=== PATIENT | female | born 1995 | race Caucasian/White ===

== ENCOUNTER 2016-08-12 02:42 | Emergency (ER) | payer BC, OTHER, SELFPAY ==
[~2016-08-12 02:42] MED LIST: MACR100C3 PO; TRAZ50TA4 PO; ZOLO50TA PO
[2016-08-12] MEDS ORDERED: AUGMENTIN 875 MG TAB As Ordered ONE (03:16)
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
--- NOTE | 2016-08-12 08:24 | REP ---
Clinical: Trauma. Technique: AP, lateral, bilateral oblique views of the right fourth digit. Findings: Intra-articular corner fracture at the base of the distal phalanx. Impression: Fracture at the base of the distal phalanx. Signed by Dain Bryan MD 08/12/2016 08:16 A
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
== END 2016-08-12 03:52 | disposition home or self-care (01) ==
LOC: M ED 02:42
DX: S01.512A Laceration without foreign body of oral cavity, initial encounter (principal); S62.634A Displaced fracture of distal phalanx of right ring finger, initial encounter for closed fracture; Y04.8XXA Assault by other bodily force, initial encounter; Y92.410 Unspecified street and highway as the place of occurrence of the external cause; Y93.89 Activity, other specified; Y99.8 Other external cause status; J45.909 Unspecified asthma, uncomplicated; F17.210 Nicotine dependence, cigarettes, uncomplicated

== ENCOUNTER 2016-08-23 13:01 | Emergency (ER) | payer BC, SELFPAY ==
[~2016-08-23] VITALS: Ht 157.5 cm; Wt 66.7 kg
[~2016-08-23 13:01] MED LIST changes: -CIPR500T89 PO; -MULT1CHW26 PO
[2016-08-23] MEDS ORDERED: MULT1CHW26 PO (13:15)
[2016-08-23] MEDS ORDERED: KETOROLAC 30 MG/ML VIAL (J1885) IV ONE (14:15)
[2016-08-23] MEDS ORDERED: ONDANSETRON 4MG/2ML VIAL (J2405) IV ONE (14:15)
[2016-08-23] MEDS ORDERED: NS 1,000 ML IV ONE (14:15)
[2016-08-23 14:40] LABS: BASO % 0.4 % (0.0-1.0); EOS # 0.1 K/mm3 (0.0-0.50); EOS % 1.6 % (0.0-3.0); LARGE UNSTAINED CELL # 0.1 K/mm3 (0.0-0.4); LARGE UNSTAINED CELL % 0.9 % (0.0-4.0); LYMPH # 1.7 K/mm3 (1.5-6.5); LYMPH % 18.8 % (24.0-44.0); MEAN CORPUSCULAR HEMOGLOBIN 29.7 pg (27.0-33.0); MEAN CORPUSCULAR HGB CONC 32.9 g/dl (32.0-36.5); MEAN CORPUSCULAR VOLUME 90.4 fl (80.0-96.0); MONO # 0.5 K/mm3 (0.0-0.8); MONO % 5.4 % (0.0-5.0); NEUTROPHILS # 6.3 K/mm3 (1.8-7.7); NEUTROPHILS % 72.8 % (36.0-66.0); PLATELET COUNT, AUTOMATED 301 k/mm3 (150-450); RED CELL DISTRIBUTION WIDTH 13.1 % (11.5-14.5); WHITE BLOOD COUNT 8.6 K/mm3 (4.0-10.0)
[2016-08-23 15:02] LABS: CONTROL LINE HCG INT CTR LINE PRESENT
[2016-08-23 15:11] LABS: ALBUMIN 4.2 GM/DL (3.2-5.2); ALBUMIN/GLOBULIN RATIO 1.35 (1.00-1.93); ALKALINE PHOSPHATASE 73 U/L (45-117); ALT/SGPT 24 U/L (12-78); AMYLASE 33 U/L (25-115); ANION GAP 7 MEQ/L (8-16); AST/SGOT 21 U/L (15-37); BILIRUBIN,DIRECT < 0.1 MG/DL (0.0-0.2); BILIRUBIN,TOTAL 0.3 MG/DL (0.2-1.0); BLOOD UREA NITROGEN 9 MG/DL (7-18); CALCIUM LEVEL 9.1 MG/DL (8.5-10.1); CARBON DIOXIDE LEVEL 28 MEQ/L (21-32); CHLORIDE LEVEL 107 MEQ/L (98-107); CREATININE FOR GFR 0.83 MG/DL (0.55-1.02); GLOMERULAR FILTRATION RATE > 60.0 (>60); GLUCOSE, FASTING 91 MG/DL (70-105); POTASSIUM SERUM 3.8 MEQ/L (3.5-5.1); SODIUM LEVEL 142 MEQ/L (136-145); TOTAL PROTEIN 7.3 GM/DL (6.4-8.2)
[2016-08-23] MEDS ORDERED: CIPR500T89 PO (15:34)
[2016-08-23 15:51] VITALS: BP 118/58
--- NOTE | 2016-08-23 16:54 | REP ---
CT ABDOMEN AND PELVIS WITHOUT ORAL OR IV CONTRAST: CT abdomen and pelvis was performed without IV contrast. Sagittal and coronal reconstructions images are performed. Visualized lung bases are clear. The liver, spleen, adrenals, pancreas and kidneys are grossly unremarkable. There is no renal, ureteral or bladder calculus and no evidence of hydroureteronephrosis. There is no abdominal aortic aneurysm. There is no free air or free fluid. There is no adenopathy. There is no bowel wall thickening. The appendix is normal. I see no pelvic mass. The urinary bladder appears grossly unremarkable. IMPRESSION: Negative CT abdomen and pelvis without IV contrast. Signed by Colyb Lowery MD 08/23/2016 05:25 P
== END 2016-08-23 16:47 | disposition home or self-care (01) ==
LOC: M ED 14:54
DX: N10 Acute pyelonephritis (principal); Z79.899 Other long term (current) drug therapy; F17.210 Nicotine dependence, cigarettes, uncomplicated
CPT/HCPCS: 36415; 74176; 80048; 80076; 81001; 82150; 83690; 84703; 85025; 85610; 87088; 87186; 96374; 96375; 99282; J1885; J2405

== ENCOUNTER → 2016-08-23 | Outpatient (REF) | payer BC ==
[~2016-08-23] MED LIST changes: +CIPR500T89 PO; +MULT1CHW26 PO
== END ==
LOC: M LAB REF 16:35
PROVIDERS: ATTEND Physician Assistant
DX: R11.2 Nausea with vomiting, unspecified (principal)

== ENCOUNTER → 2016-09-05 | Outpatient (REF) | payer BC ==
[~2016-09-05] MED LIST changes: +CIPR500T89 PO; +MULT1CHW26 PO
== END ==
LOC: M SFHCLERA 09:44
PROVIDERS: ATTEND Physician Assistant
DX: R10.9 Unspecified abdominal pain (principal)

== ENCOUNTER → 2016-10-10 | Outpatient (REF) | payer BC ==
[~2016-10-10] MED LIST changes: +SUCR1SS PO; +ZOFR4TAB3 PO
== END ==
LOC: M SFHCLERA 15:20
PROVIDERS: ATTEND Family Medicine
DX: R10.13 Epigastric pain (principal); N39.0 Urinary tract infection, site not specified

== ENCOUNTER 2016-10-11 14:08 | Emergency (ER) | payer BC ==
[~2016-10-11] VITALS: Ht 157.5 cm; Wt 68.0 kg
[~2016-10-11 14:08] MED LIST changes: -SUCR1SS PO; -ZOFR4TAB3 PO
[2016-10-11] MEDS ORDERED: ZOFR4TAB3 PO (14:22)
[2016-10-11] MEDS ORDERED: ONDANSETRON 4 MG ORAL DISINTEGRATING TAB (S0181) PO ONE (15:00)
[2016-10-11] MEDS ORDERED: GI COCKTAIL 50ML BTL(HYOSCYAMINE/MAALOX/LIDOCAINE VISCOUS)(1:3:1) PO ONE (15:00)
[2016-10-11 15:19] LABS: BASO % 0.6 % (0.0-1.0); EOS # 0.2 K/mm3 (0.0-0.50); EOS % 3.2 % (0.0-3.0); LARGE UNSTAINED CELL # 0.1 K/mm3 (0.0-0.4); LARGE UNSTAINED CELL % 1.2 % (0.0-4.0); LYMPH # 2.2 K/mm3 (1.5-6.5); LYMPH % 26.5 % (24.0-44.0); MEAN CORPUSCULAR HEMOGLOBIN 29.4 pg (27.0-33.0); MEAN CORPUSCULAR HGB CONC 33.3 g/dl (32.0-36.5); MEAN CORPUSCULAR VOLUME 88.3 fl (80.0-96.0); MONO # 0.5 K/mm3 (0.0-0.8); MONO % 6.8 % (0.0-5.0); NEUTROPHILS # 4.8 K/mm3 (1.8-7.7); NEUTROPHILS % 61.7 % (36.0-66.0); PLATELET COUNT, AUTOMATED 285 k/mm3 (150-450); WHITE BLOOD COUNT 7.8 K/mm3 (4.0-10.0)
[2016-10-11 16:20] LABS: ALBUMIN 4.5 GM/DL (3.2-5.2); ALBUMIN/GLOBULIN RATIO 1.36 (1.00-1.93); ALKALINE PHOSPHATASE 63 U/L (45-117); ALT/SGPT 29 U/L (12-78); AMYLASE 37 U/L (25-115); ANION GAP 11 MEQ/L (8-16); AST/SGOT 17 U/L (15-37); BILIRUBIN,DIRECT 0.1 MG/DL (0.0-0.2); BILIRUBIN,TOTAL 0.5 MG/DL (0.2-1.0); BLOOD UREA NITROGEN 9 MG/DL (7-18); CALCIUM LEVEL 9.6 MG/DL (8.5-10.1); CARBON DIOXIDE LEVEL 24 MEQ/L (21-32); CHLORIDE LEVEL 106 MEQ/L (98-107); CREATININE FOR GFR 0.89 MG/DL (0.55-1.02); GLOMERULAR FILTRATION RATE > 60.0 (>60); GLUCOSE, FASTING 104 MG/DL (70-105); POTASSIUM SERUM 3.7 MEQ/L (3.5-5.1); SODIUM LEVEL 141 MEQ/L (136-145); TOTAL PROTEIN 7.8 GM/DL (6.4-8.2)
[2016-10-11] MEDS ORDERED: SUCR1SS PO (16:40)
[2016-10-11 16:46] VITALS: BP 123/83
== END 2016-10-11 17:07 | disposition home or self-care (01) ==
LOC: M ED 15:19
DX: K29.00 Acute gastritis without bleeding (principal)

== ENCOUNTER → 2016-10-17 | Outpatient (REF) | payer BC ==
[~2016-10-17] MED LIST changes: +SUCR1SS PO; +ZOFR4TAB3 PO
== END ==
LOC: M SFHCLERA 15:48
PROVIDERS: ATTEND Physician Assistant
DX: N39.0 Urinary tract infection, site not specified (principal)

== ENCOUNTER → 2016-11-13 | Outpatient (CLI) | payer BC ==
[~2016-11-13] MED LIST changes: +E-Z-PAQUE 96% w/w SUSP 176GM BTL As Ordered ONE; +OMEP40CA2 PO
--- NOTE | 2016-11-13 17:47 | REP ---
SMALL BOWEL FOLLOW-THROUGH: The procedure was performed under the direct supervision of Dr. Snow. The images were reviewed with Dr. Snow. The blanking press operator film shows no organomegaly or pathological masses. The intestinal gas pattern is nonspecific. Liquid barium was administered and the barium column was followed through the small bowel to the level of the terminal ileum. Small bowel transit time is approximately 90 minutes. During fluoroscopy gentle palpation shows all loops are freely movable and pliable. There are no fixed or angulated loops. The small bowel mucosal pattern is normal in course and caliber. There is no transition to suggest a partial small bowel obstruction. Spot filming of terminal ileum shows it to be unremarkable. IMPRESSION: Small bowel follow-through examination within normal limits 2 minutes and 44 seconds of fluoroscopy time was utilized for this procedure. Reviewed by ROSIE Epperson 11/14/2016 10:20 AEdited and Signed by Lionel Snow MD 11/14/2016 05:05 P
== END ==
LOC: M RAD 09:17
PROVIDERS: ATTEND Internal Medicine Gastroenterology
DX: K58.9 Irritable bowel syndrome, unspecified (principal)

== ENCOUNTER → 2016-11-16 | Outpatient (CLI) | payer BC ==
[~2016-11-16] MED LIST changes: -E-Z-PAQUE 96% w/w SUSP 176GM BTL As Ordered ONE; +PANT40TA2 PO
[2016-11-16 10:07] LABS: FREE T4 0.9 NG/DL (0.76-1.46)
== END ==
LOC: M LAB 09:05
PROVIDERS: ATTEND Internal Medicine Gastroenterology
DX: K58.1 Irritable bowel syndrome with constipation (principal)

== ENCOUNTER → 2016-11-17 | Outpatient (CLI) | payer BC ==
[~2016-11-17] VITALS: Ht 157.5 cm; Wt 66.2 kg
[~2016-11-17] MED LIST changes: +LIDOCAINE 2% INJ 100 MG/5 ML SDV (FOR ANES.) As Ordered ONE; +NS 1,000 ML IV ONE; +PROPOFOL 200 MG/20 ML VIAL As Ordered ONE
--- NOTE | 2016-11-17 11:20 | ROOR ---
Patient Name: Adele Albarran Procedure Date: 11/17/2016 11:07 AM Date of : 1995 Age: 21 Room: [facility] Gender: Female Note Status: Finalized Procedure: Upper GI endoscopy Indications: Functional Dyspepsia, Exclusion of celiac disease, Suspected irritable bowel syndrome, Nausea with vomiting Providers: Shady HOLT MD Referring MD: ROHAN Castro Requesting Provider: Medicines: Monitored Anesthesia Care Complications: No immediate complications. Procedure: Pre-Anesthesia Assessment: - The heart rate, respiratory rate, oxygen saturations, blood pressure, adequacy of pulmonary ventilation, and response to care were monitored throughout the procedure. The Endoscope was introduced through the mouth, and advanced to the second part of duodenum. The upper GI endoscopy was accomplished without difficulty. The patient tolerated the procedure well. Findings: The esophagus was normal. The stomach was normal. The examined duodenum was normal. Biopsies for histology were taken with a cold forceps for evaluation of celiac disease. Impression: - Normal esophagus. - Normal stomach. - Normal examined duodenum. Biopsied. Recommendation: - Observe patient's clinical course. - Telephone endoscopist for pathology results in 2 weeks. Shady Holt MD Shady HOLT MD 11/17/2016 11:20:07 AM This report has been signed electronically. Number of Addenda: 0 Note Initiated On: 11/17/2016 11:07 AM Estimated Blood Loss: Estimated blood loss: none.
--- NOTE | 2016-11-17 11:34 | ROOR ---
Patient Name: Adele Albarran Procedure Date: 11/17/2016 11:08 AM Date of : 1995 Age: 21 [facility] Note Status: Finalized Procedure: Colonoscopy Indications: Generalized abdominal pain, Irritable bowel syndrome with constipation, Constipation Providers: Shady HOLT MD Referring MD: ROHAN Castro Requesting Provider: Medicines: Monitored Anesthesia Care Complications: No immediate complications. Procedure: Pre-Anesthesia Assessment: - The heart rate, respiratory rate, oxygen saturations, blood pressure, adequacy of pulmonary ventilation, and response to care were monitored throughout the procedure. The Colonoscope was introduced through the anus and advanced to 2 cm into the ileum. The colonoscopy was performed without difficulty. The patient tolerated the procedure well. The quality of the bowel preparation was fair. The bowel preparation used was GoLYTELY and magnesium citrate. Findings: The perianal and digital rectal examinations were normal. (EXAM: Complete, PREP:Adequate) The terminal ileum appeared normal. The entire examined colon appeared normal on direct and retroflexion views. Impression: - Preparation of the colon was fair/adequate. - The examined portion of the ileum was normal. - The entire colon is normal on direct and retroflexion views. - No specimens collected. - (Irritable bowel syndrome-constipation predominant). Recommendation: - Miralax 1 capful (17 grams) in 8 ounces of water twice a day. - Continue present medications. Shady Holt MD Shady HOLT MD 11/17/2016 11:34:15 AM This report has been signed electronically. Number of Addenda: 0 Note Initiated On: 11/17/2016 11:08 AM Estimated Blood Loss: Estimated blood loss: none.
[2016-11-17 11:55] VITALS: BP 132/83
== END | disposition home or self-care (01) ==
LOC: M OPP 10:05
PROVIDERS: ATTEND Internal Medicine Gastroenterology
DX: K58.1 Irritable bowel syndrome with constipation (principal); R10.13 Epigastric pain; R11.2 Nausea with vomiting, unspecified; F33.9 Major depressive disorder, recurrent, unspecified; F41.9 Anxiety disorder, unspecified; J45.909 Unspecified asthma, uncomplicated; F17.210 Nicotine dependence, cigarettes, uncomplicated; Z79.899 Other long term (current) drug therapy

== ENCOUNTER → 2016-12-06 | Outpatient (CLI) | payer BC ==
[~2016-12-06] MED LIST changes: +IBUP600T26 PO; -LIDOCAINE 2% INJ 100 MG/5 ML SDV (FOR ANES.) As Ordered ONE; -NS 1,000 ML IV ONE; -PROPOFOL 200 MG/20 ML VIAL As Ordered ONE
--- NOTE | 2016-12-07 03:15 | REP ---
Clinical: thoracic pain. Technique: AP, lateral, and swimmers views. Findings: Alignment and kyphosis is maintained. Vertebral bodies intact. No acute fracture / compression injury or subluxation. No degenerative changes. Paravertebral soft tissues are normal. Impression: Normal thoracic spine series. Signed by Dain Bryan MD 12/07/2016 03:06 A
--- NOTE | 2016-12-07 03:19 | REP ---
Clinical: Lower back pain . Technique: AP, lateral, bilateral oblique, and coned-down views. Findings: Alignment and lordosis is maintained. The vertebral bodies including transverse process and spinous processes are intact and normal. There is no evidence for acute fracture / compression injury or subluxation. No evidence for spondylolysis or spondylolisthesis. No significant degenerative change is noted. Impression: Normal lumbosacral spine radiograph series. Signed by Dain Bryan MD 12/07/2016 03:10 A
== END ==
LOC: M LRY 11:18
PROVIDERS: ATTEND Physician Assistant
DX: M54.5 Low back pain (principal); M54.6 Pain in thoracic spine

== ENCOUNTER 2016-12-08 07:03 | Emergency (ER) | payer BC ==
[~2016-12-08] VITALS: Ht 157.5 cm; Wt 66.3 kg
[~2016-12-08 07:03] MED LIST changes: -IBUP600T26 PO
[2016-12-08] MEDS ORDERED: ACETAMINOPHEN TAB 650MG DOSE (2X325MG) PO ONE (08:15)
[2016-12-08] MEDS ORDERED: IBUPROFEN 800 MG TAB PO ONE (08:15)
[2016-12-08] MEDS ORDERED: IBUP600T26 PO (08:38)
[2016-12-08 08:48] VITALS: BP 138/92
--- NOTE | 2016-12-08 09:04 | REP ---
RIGHT HAND SERIES: Four views of the right hand are performed. There is a lucency at the base of the 4th distal phalanx, which may represent a nondisplaced fracture. This could be old. No other acute fracture or dislocation is seen. Signed by Colby Lowery MD 12/08/2016 05:16 P
== END 2016-12-08 08:49 | disposition home or self-care (01) ==
LOC: M ED 07:50
DX: S63.501A Unspecified sprain of right wrist, initial encounter (principal); W22.8XXA Striking against or struck by other objects, initial encounter; Y92.89 Other specified places as the place of occurrence of the external cause; Y93.89 Activity, other specified; Y99.8 Other external cause status; F17.210 Nicotine dependence, cigarettes, uncomplicated

== ENCOUNTER → 2017-03-28 | Outpatient (REF) | payer BC ==
[~2017-03-28] MED LIST changes: +CIPR-249 PO; -CIPR500T89 PO; +HYDR-3713; +IBUP-1022 PO; -MACR100C3 PO; +MACR100C43 PO; +ONDA4TAB5; +PRAZ2CAP; +SERT-138; +TRAZ50TA11 PO; -TRAZ50TA4 PO
[2017-04-06 14:48] LABS: SUMMARY SEE SEPARATE REPORT
== END ==
LOC: M SFHCLERA 16:59
PROVIDERS: ATTEND Physician Assistant
DX: Z87.898 Personal history of other specified conditions (principal)

== ENCOUNTER 2017-04-09 11:00 | Emergency (ER) | payer BC ==
[~2017-04-09] VITALS: Ht 157.5 cm; Wt 65.9 kg
[~2017-04-09 11:00] MED LIST changes: -HYDR-3713; -ONDA4TAB5; -PRAZ2CAP; -SERT-138
[2017-04-09 11:01] VITALS: BP 126/81
[2017-04-09] MEDS ORDERED: SERT-138 (11:17)
[2017-04-09] MEDS ORDERED: PRAZ2CAP (11:17)
[2017-04-09] MEDS ORDERED: HYDR-3713 (11:17)
[2017-04-09] MEDS ORDERED: ONDA4TAB5 (11:17)
== END 2017-04-09 12:33 | disposition left against medical advice (07) ==
LOC: M ED 11:00
DX: R10.9 Unspecified abdominal pain (principal); Z53.29 Procedure and treatment not carried out because of patient's decision for other reasons

== ENCOUNTER → 2017-06-28 | Outpatient (CLI) | payer BC ==
[2017-06-28 15:09] LABS: C REACTIVE PROTEIN QUANTITATIV < 0.30 MG/DL (0.00-0.30)
[2017-06-28 15:10] LABS: ERYTHROCYTE SEDIMENTATION RATE 5 mm/hr (0-20)
[2017-07-03 00:07] LABS: ANCA-ATYPICAL <1:20 titer (Neg:<1:20); ANTI-SACCHAROMYCES CEREV. IgA <20.0 Units (0.0-24.9); ANTI-SACCHAROMYCES CEREV. IgG <20.0 Units (0.0-24.9); CYTOPLASMIC NEUTROP AB ANCA-C <1:20 titer (Neg:<1:20); ENDOMYSIAL ABY IgA Negative (Negative); PERINUCLEAR AB ANCA-P <1:20 titer (Neg:<1:20); TISSUE TRANSGLUTAMINASE IgA <2 U/mL (0-3); TISSUE TRANSGLUTAMINASE IgG <2 U/mL (0-5)
== END ==
LOC: M LAB 13:52
DX: R19.7 Diarrhea, unspecified (principal); R10.9 Unspecified abdominal pain; A04.72 Enterocolitis due to Clostridium difficile, not specified as recurrent; R94.5 Abnormal results of liver function studies
CPT/HCPCS: 86255

== ENCOUNTER 2017-06-30 16:58 | Emergency (ER) | payer OTHER, BC ==
[2017-06-30] MEDS: IBUPROFEN 800 MG TAB PO (17:34)
== END 2017-06-30 17:57 | disposition home or self-care (01) ==
LOC: M ED 16:58
DX: S83.91XA Sprain of unspecified site of right knee, initial encounter (principal); S80.01XA Contusion of right knee, initial encounter; S30.0XXA Contusion of lower back and pelvis, initial encounter; V49.49XA Driver injured in collision with other motor vehicles in traffic accident, initial encounter; Y92.410 Unspecified street and highway as the place of occurrence of the external cause; Y93.89 Activity, other specified; Y99.8 Other external cause status; J45.909 Unspecified asthma, uncomplicated; F41.9 Anxiety disorder, unspecified; N89.9 Noninflammatory disorder of vagina, unspecified; Z79.899 Other long term (current) drug therapy; F17.210 Nicotine dependence, cigarettes, uncomplicated
CPT/HCPCS: 72170

== ENCOUNTER → 2017-08-03 | Outpatient (CLI) | payer OTHER | LOC: M LAB 09:03 | DX: A04.72 Enterocolitis due to Clostridium difficile, not specified as recurrent (principal) | CPT/HCPCS: 83993 ==

== ENCOUNTER → 2017-08-03 | Outpatient (CLI) | payer OTHER | LOC: M RAD 08:32 | DX: R10.9 Unspecified abdominal pain (principal); R11.0 Nausea | CPT/HCPCS: 76700 ==

== ENCOUNTER → 2019-01-29 | Outpatient (REF) | payer OTHER ==
[~2019-01-29] MED LIST changes: +HYDR-3713; +ONDA4TAB5; -PANT40TA2 PO; +PANT40TA3 PO; +PRAZ2CAP; +PROP20TA72 PO; +REGL10TA6 PO; +ROBA500T PO; +SERT-138 PO; +TRAZ-252 PO; -TRAZ50TA11 PO; +ZOFR4TAB14 PO; -ZOFR4TAB3 PO
[2019-01-29 13:48] LABS: AMORPHOUS SEDIMENT SMALL (NEGATIVE); APPEARANCE, URINE HAZY (CLEAR); BACTERIA, URINE AUTO NEGATIVE (NEGATIVE); BASO # 0.1 10^3/uL (0.0-0.2); BASO % 0.8 % (0.0-1.0); BILIRUBIN, URINE AUTO NEGATIVE (NEGATIVE); BLOOD, URINE BLOOD NEGATIVE (NEGATIVE); CALCIUM PHOSPHATE CRYSTALS MODERATE; COLOR, URINE YELLOW (YELLOW); EOS # 0.4 10^3/uL (0.0-0.50); EOS % 5.3 % (0.0-3.0); GLUCOSE, URINE (UA) AUTO NEGATIVE (NEGATIVE); HEMATOCRIT 41.9 % (36.0-47.0); HEMOGLOBIN 13.8 g/dl (12.0-15.5); KETONE, URINE AUTO NEGATIVE (NEGATIVE); LEUKOCYTE ESTERASE, URINE AUTO NEGATIVE (NEGATIVE); LYMPH # 2.6 10^3/uL (1.5-6.5); LYMPH % 33.5 % (24.0-44.0); MEAN CORPUSCULAR HEMOGLOBIN 30.4 pg (27.0-33.0); MEAN CORPUSCULAR HGB CONC 32.9 g/dl (32.0-36.5); MEAN CORPUSCULAR VOLUME 92.3 fl (80.0-96.0); MONO # 0.7 10^3/uL (0.0-0.8); MONO % 8.4 % (0.0-5.0); MUCUS, URINE SMALL (NEGATIVE); NEUTROPHILS # 4.1 10^3/uL (1.8-7.7); NEUTROPHILS % 51.7 % (36.0-66.0); NITRITE, URINE AUTO NEGATIVE (NEGATIVE); PLATELET COUNT, AUTOMATED 263 10^3/uL (150-450); PROTEIN, URINE AUTO NEGATIVE (NEGATIVE); RBC, URINE AUTO 2 /HPF (0-3); RED BLOOD COUNT 4.54 10^6/uL (4.00-5.40); RENAL EPITHELIAL CELLS 1 /HPF; SPECIFIC GRAVITY URINE AUTO 1.019 (1.002-1.035); SQUAMOUS EPITHELIAL CELL UR AU 7 /HPF (0-6); TRANSITIONAL EPITHELIAL AUTO 1 /HPF; UROBILINOGEN, URINE AUTO 0.2 mg/dL (0.0-2.0); WBC, URINE AUTO 4 /HPF (0-3); WHITE BLOOD COUNT 7.9 10^3/uL (4.0-10.0)
[2019-01-29 13:54] LABS: ALT/SGPT 24 U/L (12-78); BILIRUBIN,TOTAL < 0.1 MG/DL (0.2-1.0); BLOOD UREA NITROGEN 10 MG/DL (7-18); CALCIUM LEVEL 9.3 MG/DL (8.5-10.1); CARBON DIOXIDE LEVEL 28 MEQ/L (21-32); CHLORIDE LEVEL 108 MEQ/L (98-107); CHOLESTEROL LEVEL 149 MG/DL (<200); CHOLESTEROL RISK RATIO 2.759 (<5); CREATININE FOR GFR 0.84 MG/DL (0.55-1.30); GLOMERULAR FILTRATION RATE > 60.0 (>60); GLUCOSE, FASTING 85 MG/DL (70-100); HDL CHOLESTEROL 54 MG/DL (>40); LDL CHOLESTEROL 86 MG/DL (<100); NON-HDL-C 95 MG/DL; POTASSIUM SERUM 4.8 MEQ/L (3.5-5.1); SODIUM LEVEL 141 MEQ/L (136-145); TRIGLYCERIDES LEVEL 46 MG/DL (<150)
[2019-01-29 13:55] LABS: ESTRADIOL 68.3 PG/ML; FREE T4 0.94 NG/DL (0.76-1.46)
[2019-01-29 13:57] LABS: TOTAL 25(OH) VITAMIN D 22.1 NG/ML (30.0-100.0)
[2019-01-29 14:09] LABS: HEPATITIS B SURFACE ANTIGEN NEGATIVE (NEGATIVE)
[2019-01-29 14:14] LABS: HEMOGLOBIN A1c 5.4 %
[2019-01-29 14:36] LABS: HEPATITIS B CORE ANTIBODY IGM NEGATIVE (NEGATIVE); HEPATITIS C VIRUS ABY INDEX 0.1 INDEX (<0.8)
[2019-01-29 14:37] LABS: HIV 1&2 SCREEN CENTAUR NEGATIVE (NEGATIVE)
[2019-01-29 14:39] LABS: HEPATITIS A ANTIBODY IGM NEGATIVE (NEGATIVE)
[2019-01-29 16:39] LABS: CHLAMYDIA DNA AMPLIFICATION NEGATIVE (NEGATIVE); GC DNA AMPLIFICATION NEGATIVE (NEGATIVE)
[2019-01-31 15:47] LABS: HSV TYPE I IgG SPECIFIC <0.91 index (0.00-0.90); HSV TYPE I IgM AB <1:10 titer (<1:10); HSV TYPE II IgG SPECIFIC <0.91 index (0.00-0.90); HSV TYPE II IgM ABY <1:10 titer (<1:10); Lyme Disease IgG/IgM Antibodie <0.91 ISR (0.00-0.90); Lyme Disease IgM Ab Quantitati <0.80 index (0.00-0.79)
== END ==
LOC: M LAB REF 12:55
PROVIDERS: ATTEND Family Medicine
DX: F64.0 Transsexualism (principal); Z13.228 Encounter for screening for other metabolic disorders; Z11.3 Encounter for screening for infections with a predominantly sexual mode of transmission

== ENCOUNTER → 2019-06-23 | Outpatient (REF) | payer OTHER ==
[~2019-06-23] MED LIST changes: -OMEP40CA2 PO; +OMEP40CA97 PO
[2019-06-23 18:16] LABS: BASO # 0.1 10^3/uL (0.0-0.2); BASO % 1.1 % (0.0-1.0); EOS # 0.3 10^3/uL (0.0-0.5); EOS % 4.8 % (0.0-3.0); HEMATOCRIT 43.1 % (36.0-47.0); HEMOGLOBIN 13.9 g/dl (12.0-15.5); LYMPH # 1.2 10^3/uL (1.5-5.0); LYMPH % 20.8 % (24.0-44.0); MEAN CORPUSCULAR HEMOGLOBIN 28.3 pg (27.0-33.0); MEAN CORPUSCULAR HGB CONC 32.3 g/dl (32.0-36.5); MEAN CORPUSCULAR VOLUME 87.8 fl (80.0-96.0); MONO # 0.8 10^3/uL (0.0-0.8); MONO % 14.1 % (0.0-5.0); NEUTROPHILS # 3.3 10^3/uL (1.5-8.5); PLATELET COUNT, AUTOMATED 220 10^3/uL (150-450); RED BLOOD COUNT 4.91 10^6/uL (4.00-5.40); WHITE BLOOD COUNT 5.6 10^3/uL (4.0-10.0)
[2019-06-23 18:24] LABS: ALBUMIN 4.2 GM/DL (3.2-5.2); ALT/SGPT 31 U/L (12-78); BILIRUBIN,TOTAL 0.2 MG/DL (0.2-1.0); BLOOD UREA NITROGEN 7 MG/DL (7-18); CALCIUM LEVEL 9.1 MG/DL (8.5-10.1); CARBON DIOXIDE LEVEL 24 MEQ/L (21-32); CHLORIDE LEVEL 106 MEQ/L (98-107); CHOLESTEROL LEVEL 192 MG/DL (<200); CHOLESTEROL RISK RATIO 3.918 (<5); CREATININE FOR GFR 1.05 MG/DL (0.55-1.30); GLOMERULAR FILTRATION RATE > 60.0 (>60); GLUCOSE, FASTING 84 MG/DL (70-100); HDL CHOLESTEROL 49 MG/DL (>40); LDL CHOLESTEROL 131 MG/DL (<100); NON-HDL-C 143 MG/DL; POTASSIUM SERUM 3.9 MEQ/L (3.5-5.1); SODIUM LEVEL 139 MEQ/L (136-145); TOTAL PROTEIN 7.6 GM/DL (6.4-8.2); TRIGLYCERIDES LEVEL 60 MG/DL (<150)
[2019-06-23 18:30] LABS: TESTOSTERONE 833 NG/DL (14-76)
[2019-06-23 18:32] LABS: ESTRADIOL 41.8 PG/ML
[2019-06-23 18:57] LABS: HEMOGLOBIN A1c 5.6 %
== END ==
LOC: M LAB REF 16:45
PROVIDERS: ATTEND Nurse Practitioner Adult Health
DX: Z79.890 Hormone replacement therapy (principal); F64.0 Transsexualism

== ENCOUNTER → 2019-09-09 | Outpatient (CLI) | payer OTHER ==
[~2019-09-09] MED LIST changes: +ONDA-83; -ONDA4TAB5
--- NOTE | 2019-09-11 18:12 | ECGEPIP ---
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
== END ==
LOC: M EKG 10:46
PROVIDERS: ATTEND Orthopaedic Surgery Hand Surgery
DX: Z01.810 Encounter for preprocedural cardiovascular examination (principal); I10 Essential (primary) hypertension; G56.21 Lesion of ulnar nerve, right upper limb; G56.01 Carpal tunnel syndrome, right upper limb

== ENCOUNTER → 2019-10-15 | Outpatient (REF) | payer OTHER, MEDICAID ==
[2019-10-15 17:00] LABS: BASO % 0.5 % (0.0-1.0); EOS # 0.3 10^3/uL (0.0-0.5); EOS % 3.1 % (0.0-3.0); HEMATOCRIT 46.4 % (36.0-47.0); HEMOGLOBIN 14.6 g/dl (12.0-15.5); LYMPH # 2.6 10^3/uL (1.5-5.0); LYMPH % 30.3 % (24.0-44.0); MEAN CORPUSCULAR HEMOGLOBIN 26.7 pg (27.0-33.0); MEAN CORPUSCULAR HGB CONC 31.5 g/dl (32.0-36.5); MEAN CORPUSCULAR VOLUME 84.8 fl (80.0-96.0); MONO # 0.7 10^3/uL (0.0-0.8); MONO % 7.5 % (0.0-5.0); NEUTROPHILS # 5.1 10^3/uL (1.5-8.5); NEUTROPHILS % 58.4 % (36.0-66.0); PLATELET COUNT, AUTOMATED 334 10^3/uL (150-450); RED BLOOD COUNT 5.47 10^6/uL (4.00-5.40); WHITE BLOOD COUNT 8.7 10^3/uL (4.0-10.0)
[2019-10-15 17:09] LABS: ALBUMIN 4.4 GM/DL (3.2-5.2); ALT/SGPT 30 U/L (12-78); BILIRUBIN,TOTAL 0.2 MG/DL (0.2-1.0); BLOOD UREA NITROGEN 11 MG/DL (7-18); CALCIUM LEVEL 9.7 MG/DL (8.5-10.1); CARBON DIOXIDE LEVEL 27 MEQ/L (21-32); CHLORIDE LEVEL 104 MEQ/L (98-107); CHOLESTEROL LEVEL 197 MG/DL (<200); CHOLESTEROL RISK RATIO 4.191 (<5); CREATININE FOR GFR 0.98 MG/DL (0.55-1.30); GLOMERULAR FILTRATION RATE > 60.0 (>60); GLUCOSE, FASTING 80 MG/DL (70-100); HDL CHOLESTEROL 47 MG/DL (>40); LDL CHOLESTEROL 129 MG/DL (<100); NON-HDL-C 150 MG/DL; POTASSIUM SERUM 4.2 MEQ/L (3.5-5.1); SODIUM LEVEL 137 MEQ/L (136-145); TOTAL PROTEIN 8.1 GM/DL (6.4-8.2); TRIGLYCERIDES LEVEL 104 MG/DL (<150)
[2019-10-15 17:15] LABS: ESTRADIOL 28.4 PG/ML; TESTOSTERONE 764 NG/DL (14-76)
[2019-10-15 17:23] LABS: HEMOGLOBIN A1c 5.8 %
== END ==
LOC: M LAB REF 16:19
PROVIDERS: ATTEND Nurse Practitioner Adult Health
DX: Z79.890 Hormone replacement therapy (principal)

== ENCOUNTER → 2019-11-06 | Outpatient (REF) | payer OTHER | LOC: M LAB REF 14:44 | PROVIDERS: ATTEND Urology | DX: N31.8 Other neuromuscular dysfunction of bladder (principal); Z01.812 Encounter for preprocedural laboratory examination ==

== ENCOUNTER → 2020-04-07 | Outpatient (REF) | payer OTHER, MEDICAID ==
[~2020-04-07] MED LIST changes: +PANT40TA29 PO; -PANT40TA3 PO
[2020-04-07 17:15] LABS: APPEARANCE, URINE CLOUDY (CLEAR); BACTERIA, URINE AUTO 2+ (NEGATIVE); BILIRUBIN, URINE AUTO NEGATIVE (NEGATIVE); BLOOD, URINE BLOOD 3+ (NEGATIVE); COLOR, URINE YELLOW (YELLOW); GLUCOSE, URINE (UA) AUTO NEGATIVE (NEGATIVE); KETONE, URINE AUTO NEGATIVE (NEGATIVE); LEUKOCYTE ESTERASE, URINE AUTO 3+ (NEGATIVE); MUCUS, URINE SMALL (NEGATIVE); NITRITE, URINE AUTO POSITIVE (NEGATIVE); PROTEIN, URINE AUTO 2+ mg/dL (NEGATIVE); RBC, URINE AUTO TNTC /HPF (0-3); RENAL EPITHELIAL CELLS 1 /HPF; SPECIFIC GRAVITY URINE AUTO 1.012 (1.002-1.035); SQUAMOUS EPITHELIAL CELL UR AU 2 /HPF (0-6); UROBILINOGEN, URINE AUTO 0.2 mg/dL (0.0-2.0); WBC, URINE AUTO 178 /HPF (0-3)
== END ==
LOC: M LAB REF 16:31
PROVIDERS: ATTEND Nurse Practitioner Adult Health
DX: Z93.6 Other artificial openings of urinary tract status (principal)

== ENCOUNTER → 2020-04-08 | Outpatient (REF) | payer OTHER, MEDICAID ==
[2020-04-08 13:26] LABS: ALBUMIN 3.8 GM/DL (3.2-5.2); ALT/SGPT 24 U/L (12-78); BILIRUBIN,TOTAL 0.2 MG/DL (0.2-1.0); BLOOD UREA NITROGEN 11 MG/DL (7-18); CARBON DIOXIDE LEVEL 29 MEQ/L (21-32); CHLORIDE LEVEL 107 MEQ/L (98-107); CREATININE FOR GFR 1.07 MG/DL (0.55-1.30); GLOMERULAR FILTRATION RATE > 60.0 (>60); GLUCOSE, FASTING 76 MG/DL (70-100); POTASSIUM SERUM 4.3 MEQ/L (3.5-5.1); SODIUM LEVEL 140 MEQ/L (136-145); TOTAL PROTEIN 6.9 GM/DL (6.4-8.2)
[2020-04-08 14:02] LABS: HEMOGLOBIN A1c 5.4 %
[2020-04-08 17:16] LABS: TESTOSTERONE 1174 NG/DL (14-76)
== END ==
LOC: M LAB REF 12:23
PROVIDERS: ATTEND Nurse Practitioner Adult Health
DX: Z79.890 Hormone replacement therapy (principal)

== ENCOUNTER → 2020-04-08 | Outpatient (CLI) | payer OTHER ==
--- NOTE | 2020-04-08 13:47 | REP ---
INDICATION: CALCULUS OF KIDNEY COMPARISON: 08/23/2016 TECHNIQUE: Axial noncontrast images from the lung bases to the pubic symphysis with coronal and sagittal reformations. FINDINGS: The patient appears to be status post bladder resection with urostomy/ileal conduit via the right anterior abdominal wall. The right kidney and ureter appear normal. The left kidney includes a ureteral stent extending from the renal pelvis to the ileal conduit and demonstrates a distended extrarenal pelvis and mild hydroureteronephrosis without perinephric stranding or nephroureterolithiasis. Liver, spleen, pancreas, gallbladder, and bilateral adrenal glands are normal. The enteric system is without obstruction or acute inflammatory process. Pelvis demonstrates prior hysterectomy and bladder resection. No ascites. No free air. No adenopathy. Abdominal aorta without aneurysm. Osseous structures are intact without acute abnormality. Lung bases are clear. IMPRESSION: 1. Evidence for prior bladder resection and hysterectomy with ileal conduit/urostomy via the right anterior abdominal wall. 2. The left kidney demonstrates dilated extrarenal pelvis and mild hydroureteronephrosis with ureteral stent in satisfactory position extending from the left renal pelvis into the urostomy. No associated perinephric stranding. 3. No ascites, focal inflammatory stranding, or adenopathy. <Electronically signed by Dain Bryan > 04/08/20 1216
== END ==
LOC: M RAD 12:58
PROVIDERS: ATTEND Urology
DX: N20.0 Calculus of kidney (principal)

== ENCOUNTER → 2020-08-10 | Outpatient (CLI) | payer OTHER ==
--- NOTE | 2020-08-10 20:44 | REPVR ---
PROCEDURE INFORMATION: Exam: MR Cervical Spine Without Contrast Exam date and time: 08/10/2020 6:37 PM Age: 25 years old Clinical indication: Pain; Cervicalgia; Additional info: Aneursym, cervical myelopathy TECHNIQUE: Imaging protocol: Multiplanar magnetic resonance images of the cervical spine without contrast. COMPARISON: CT Spine,cervical w/o contrast 09/03/2014 7:37 AM FINDINGS: Vertebrae: Unremarkable. Spinal cord: Normal signal. No cord compression. C2-C3: No significant disc disease. No significant spinal stenosis. C3-C4: No significant disc disease. No significant spinal stenosis. C4-C5: Asymmetric right paracentral disc protrusion at C4-C5 effaces the ventral subarachnoid space without significant cord impingement. C5-C6: Posterior disc protrusion at C5-C6 effaces the ventral subarachnoid space with mild cord impingement. C6-C7: No significant disc disease. No significant spinal stenosis. C7-T1: No significant disc disease. No significant spinal stenosis. Soft tissues: Unremarkable. Vertebral arteries: Expected flow voids in the vertebral arteries. IMPRESSION: 1. Posterior disc protrusion at C5-C6 effaces the ventral subarachnoid space with mild cord impingement. 2. Asymmetric right paracentral disc protrusion at C4-C5 effaces the ventral subarachnoid space without significant cord impingement. Electronically signed by: Harley Burrell On 08/10/2020 20:44:09 PM
--- NOTE | 2020-08-10 20:47 | REPVR ---
PROCEDURE INFORMATION: Exam: MR Angiogram Head Without Contrast, Arteries Exam date and time: 08/10/2020 6:37 PM Age: 25 years old Clinical indication: Condition or disease; Aneurysm, cerebral; Additional info: Aneursym, cervical myelopathy TECHNIQUE: Imaging protocol: MR angiogram head without contrast. Exam focused on the arteries. 3D rendering (Not supervised by radiologist): MIP and/or 3D reconstructed images were created by the technologist. COMPARISON: CT Head without contrast 09/03/2014 7:34 AM FINDINGS: ANTERIOR CIRCULATION: Right internal carotid artery: Intracranial segment is patent with no significant stenosis. No aneurysm. Right middle cerebral artery: No occlusion or significant stenosis. No aneurysm. Right anterior cerebral artery: No occlusion or significant stenosis. No aneurysm. Left internal carotid artery: Intracranial segment is patent with no significant stenosis. No aneurysm. Left middle cerebral artery: No occlusion or significant stenosis. No aneurysm. Left anterior cerebral artery: No occlusion or significant stenosis. No aneurysm. POSTERIOR CIRCULATION: Right vertebral artery: No occlusion or significant stenosis. No aneurysm. Left vertebral artery: Left vertebral artery dominance. Basilar artery: No occlusion or significant stenosis. No aneurysm. Right posterior cerebral artery: No occlusion or significant stenosis. No aneurysm. Left posterior cerebral artery: No occlusion or significant stenosis. No aneurysm. IMPRESSION: 1. No acute findings. 2. Left vertebral artery dominance. 3. Intracranial arteries otherwise unremarkable. Electronically signed by: Harley Burrell On 08/10/2020 20:47:08 PM
== END ==
LOC: M RAD 17:08
PROVIDERS: ATTEND Neurological Surgery
DX: G95.9 Disease of spinal cord, unspecified (principal)

== ENCOUNTER → 2020-09-30 | Outpatient (CLI) | payer OTHER ==
[2020-09-30 09:29] LABS: HEMATOCRIT 45.1 % (36.0-47.0); HEMOGLOBIN 14.7 g/dl (12.0-15.5); MEAN CORPUSCULAR HEMOGLOBIN 28.7 pg (27.0-33.0); MEAN CORPUSCULAR HGB CONC 32.6 g/dl (32.0-36.5); MEAN CORPUSCULAR VOLUME 88.1 fl (80.0-96.0); PLATELET COUNT, AUTOMATED 318 10^3/uL (150-450); RED BLOOD COUNT 5.12 10^6/uL (4.00-5.40); WHITE BLOOD COUNT 7.5 10^3/uL (4.0-10.0)
[2020-09-30 09:41] LABS: AMORPHOUS SEDIMENT SMALL (NEGATIVE); APPEARANCE, URINE HAZY (CLEAR); BACTERIA, URINE AUTO 3+ (NEGATIVE); BILIRUBIN, URINE AUTO NEGATIVE (NEGATIVE); BLOOD, URINE BLOOD 1+ (NEGATIVE); COLOR, URINE YELLOW (YELLOW); GLUCOSE, URINE (UA) AUTO NEGATIVE (NEGATIVE); KETONE, URINE AUTO NEGATIVE (NEGATIVE); LEUKOCYTE ESTERASE, URINE AUTO 1+ (NEGATIVE); MUCUS, URINE SMALL (NEGATIVE); NITRITE, URINE AUTO POSITIVE (NEGATIVE); PROTEIN, URINE AUTO NEGATIVE (NEGATIVE); RBC, URINE AUTO 3 /HPF (0-3); SPECIFIC GRAVITY URINE AUTO 1.006 (1.002-1.035); SQUAMOUS EPITHELIAL CELL UR AU 0 /HPF (0-6); UROBILINOGEN, URINE AUTO 0.2 mg/dL (0.0-2.0); WBC, URINE AUTO 18 /HPF (0-3)
[2020-09-30 09:49] LABS: ALBUMIN 4.5 GM/DL (3.2-5.2); ALT/SGPT 29 U/L (12-78); BILIRUBIN,DIRECT 0.1 MG/DL (0.0-0.2); BILIRUBIN,TOTAL 0.3 MG/DL (0.2-1.0); BLOOD UREA NITROGEN 13 MG/DL (7-18); CALCIUM LEVEL 9.5 MG/DL (8.5-10.1); CARBON DIOXIDE LEVEL 28 MEQ/L (21-32); CHLORIDE LEVEL 104 MEQ/L (98-107); CREATININE FOR GFR 1.12 MG/DL (0.55-1.30); FERRITIN 12 NG/ML (8-252); GLOMERULAR FILTRATION RATE > 60.0 (>60); GLUCOSE, FASTING 83 MG/DL (70-100); IRON (FE) 129 UG/DL (50-170); MAGNESIUM LEVEL 1.9 MG/DL (1.8-2.4); PERCENT SATURATION 37.3 % (13.2-45.0); POTASSIUM SERUM 3.1 MEQ/L (3.5-5.1); SODIUM LEVEL 139 MEQ/L (136-145); TOTAL IRON BINDING CAPACITY 346 UG/DL (250-450); TOTAL PROTEIN 7.8 GM/DL (6.4-8.2)
[2020-09-30 09:58] LABS: VITAMIN B12 LEVEL 964 PG/ML (247-911)
[2020-09-30 10:12] LABS: HEMOGLOBIN A1c 5.3 %
[2020-09-30 11:07] LABS: ERYTHROCYTE SEDIMENTATION RATE 4 mm/hr (0-20)
== END ==
LOC: M LAB 08:30
PROVIDERS: ATTEND Internal Medicine Gastroenterology
DX: A04.72 Enterocolitis due to Clostridium difficile, not specified as recurrent (principal); R19.7 Diarrhea, unspecified; K59.00 Constipation, unspecified; R10.9 Unspecified abdominal pain; R94.5 Abnormal results of liver function studies; K64.0 First degree hemorrhoids; R11.0 Nausea; K21.9 Gastro-esophageal reflux disease without esophagitis; K62.5 Hemorrhage of anus and rectum; R14.3 Flatulence; E11.9 Type 2 diabetes mellitus without complications; E55.9 Vitamin D deficiency, unspecified

== ENCOUNTER → 2020-10-08 | Outpatient (REF) | payer OTHER ==
[2020-10-08 12:34] LABS: ALBUMIN 3.8 GM/DL (3.2-5.2); ALT/SGPT 25 U/L (12-78); BILIRUBIN,TOTAL 0.2 MG/DL (0.2-1.0); BLOOD UREA NITROGEN 7 MG/DL (7-18); CALCIUM LEVEL 8.8 MG/DL (8.5-10.1); CARBON DIOXIDE LEVEL 27 MEQ/L (21-32); CHLORIDE LEVEL 110 MEQ/L (98-107); CHOLESTEROL LEVEL 172 MG/DL (<200); CHOLESTEROL RISK RATIO 3.659 (<5); CREATININE FOR GFR 0.91 MG/DL (0.55-1.30); GLOMERULAR FILTRATION RATE > 60.0 (>60); GLUCOSE, FASTING 83 MG/DL (70-100); HDL CHOLESTEROL 47 MG/DL (>40); LDL CHOLESTEROL 113 MG/DL (<100); NON-HDL-C 125 MG/DL; POTASSIUM SERUM 4.5 MEQ/L (3.5-5.1); SODIUM LEVEL 142 MEQ/L (136-145); TOTAL PROTEIN 6.7 GM/DL (6.4-8.2); TRIGLYCERIDES LEVEL 58 MG/DL (<150)
[2020-10-09 15:06] LABS: TESTOSTERONE FREE (DIRECT) 15.8 pg/mL (0.0-4.2)
== END ==
LOC: M LAB REF 11:42
PROVIDERS: ATTEND Pediatrics
DX: Z79.890 Hormone replacement therapy (principal)

== ENCOUNTER → 2020-11-25 | Outpatient (REF) | payer OTHER | LOC: M LAB REF 12:29 | PROVIDERS: ATTEND Physician Assistant | DX: R82.998 Other abnormal findings in urine (principal) ==

== ENCOUNTER → 2020-12-03 | Outpatient (REF) | payer OTHER ==
[2020-12-03 17:08] LABS: ALBUMIN 4.3 GM/DL (3.2-5.2); ALT/SGPT 27 U/L (12-78); BILIRUBIN,TOTAL 0.4 MG/DL (0.2-1.0); BLOOD UREA NITROGEN 14 MG/DL (7-18); CALCIUM LEVEL 9.3 MG/DL (8.5-10.1); CARBON DIOXIDE LEVEL 29 MEQ/L (21-32); CHLORIDE LEVEL 106 MEQ/L (98-107); CREATININE FOR GFR 1.12 MG/DL (0.55-1.30); GLOMERULAR FILTRATION RATE > 60.0 (>60); GLUCOSE, FASTING 75 MG/DL (70-100); POTASSIUM SERUM 4.3 MEQ/L (3.5-5.1); SODIUM LEVEL 139 MEQ/L (136-145); TOTAL PROTEIN 7.2 GM/DL (6.4-8.2)
[2020-12-06 16:08] LABS: TESTOSTERONE FREE (DIRECT) 15.4 pg/mL (0.0-4.2)
== END ==
LOC: M LAB REF 16:08
PROVIDERS: ATTEND Pediatrics
DX: Z79.890 Hormone replacement therapy (principal)

== ENCOUNTER → 2021-01-06 | Outpatient (REF) | payer OTHER ==
[~2021-01-06] MED LIST changes: +OMEP40CA4 PO; -OMEP40CA97 PO
[2021-01-11 01:07] LABS: CALPROTECTIN STOOL 38 ug/g (0-120); H PYLORI STOOL ANTIGEN Negative (Negative)
== END ==
LOC: M LAB REF 12:21
PROVIDERS: ATTEND Internal Medicine Gastroenterology
DX: R10.9 Unspecified abdominal pain (principal); R19.7 Diarrhea, unspecified; A04.72 Enterocolitis due to Clostridium difficile, not specified as recurrent; R14.3 Flatulence

== ENCOUNTER → 2021-05-13 | Outpatient (CLI) | payer OTHER ==
--- NOTE | 2021-05-13 14:18 | REP ---
INDICATION: ABD PAIN, GERD. COMPARISON: None. TECHNIQUE/RADIOTRACER AND DOSE: 1.05 mCi of technetium 99 M sulfur colloid was Cook bound to 2 scrambled eggs and given to ingest orally with 6 oz of tap water. Sequential scintiscans were obtained anteriorly and posteriorly FINDINGS: The T1/2 for gastric emptying was calculated at 118 minutes. Normal T 1/2 is 90 minutes. At 90 minutes only 39% gastric emptying was calculated. IMPRESSION: Delayed gastric emptying <Electronically signed by Ata Zuñiga > 05/13/21 [id number]
== END ==
LOC: M RAD 11:57
PROVIDERS: ATTEND Internal Medicine Gastroenterology
DX: K31.84 Gastroparesis (principal); R10.32 Left lower quadrant pain; R19.7 Diarrhea, unspecified; K21.9 Gastro-esophageal reflux disease without esophagitis; R11.2 Nausea with vomiting, unspecified
CPT/HCPCS: 78264; A9541

== ENCOUNTER → 2021-08-22 | Outpatient (CLI) | payer OTHER | LOC: M PLAIMG 13:02 | PROVIDERS: ATTEND Neurological Surgery | DX: I67.1 Cerebral aneurysm, nonruptured (principal) ==

== ENCOUNTER → 2021-08-25 | Outpatient (CLI) | payer MEDICARE, OTHER | LOC: M PLAIMG 08:07 | PROVIDERS: ATTEND Physician Assistant | DX: M77.01 Medial epicondylitis, right elbow (principal) ==

== ENCOUNTER → 2022-04-03 | Outpatient (CLI) | payer OTHER | LOC: M WHC 08:25 → M RAD 08:25 | PROVIDERS: ATTEND Internal Medicine Gastroenterology | DX: D18.03 Hemangioma of intra-abdominal structures (principal); K30 Functional dyspepsia; R11.2 Nausea with vomiting, unspecified; K59.00 Constipation, unspecified; K21.9 Gastro-esophageal reflux disease without esophagitis; R13.10 Dysphagia, unspecified ==

== ENCOUNTER → 2022-04-04 | Outpatient (REF) | payer MEDICARE, OTHER ==
[2022-04-04 18:01] LABS: BASO # 0.1 10^3/uL (0.0-0.2); BASO % 1.4 % (0.0-1.0); EOS # 0.5 10^3/uL (0.0-0.5); EOS % 6.9 % (0.0-3.0); HEMATOCRIT 45.3 % (36.0-47.0); HEMOGLOBIN 14.7 g/dl (12.0-15.5); LYMPH % 29.2 % (24.0-44.0); MEAN CORPUSCULAR HEMOGLOBIN 31.3 pg (27.0-33.0); MEAN CORPUSCULAR HGB CONC 32.5 g/dl (32.0-36.5); MEAN CORPUSCULAR VOLUME 96.6 fl (80.0-96.0); MONO # 0.5 10^3/uL (0.0-0.8); MONO % 7.7 % (2.0-8.0); NEUTROPHILS # 3.8 10^3/uL (1.5-8.5); NEUTROPHILS % 54.4 % (36.0-66.0); PLATELET COUNT, AUTOMATED 314 10^3/uL (150-450); RED BLOOD COUNT 4.69 10^6/uL (4.00-5.40)
[2022-04-04 18:03] LABS: ALBUMIN 4.1 GM/DL (3.2-5.2); ALT/SGPT 22 U/L (12-78); BILIRUBIN,TOTAL 0.2 MG/DL (0.2-1.0); BLOOD UREA NITROGEN 12 MG/DL (7-18); CALCIUM LEVEL 9.1 MG/DL (8.5-10.1); CARBON DIOXIDE LEVEL 30 MEQ/L (21-32); CHLORIDE LEVEL 106 MEQ/L (98-107); CHOLESTEROL LEVEL 160 MG/DL (<200); CHOLESTEROL RISK RATIO 3.137 (<5); GLOMERULAR FILTRATION RATE > 60.0 (>60); GLUCOSE, FASTING 93 MG/DL (70-100); HDL CHOLESTEROL 51 MG/DL (>40); LDL CHOLESTEROL 96 MG/DL (<100); NON-HDL-C 109 MG/DL; POTASSIUM SERUM 4.3 MEQ/L (3.5-5.1); SODIUM LEVEL 141 MEQ/L (136-145); TOTAL PROTEIN 7.3 GM/DL (6.4-8.2); TRIGLYCERIDES LEVEL 64 MG/DL (<150)
[2022-04-04 18:36] LABS: TESTOSTERONE 560 NG/DL (14-76)
== END ==
LOC: M LAB REF 17:26
PROVIDERS: ATTEND Pediatrics
DX: E55.9 Vitamin D deficiency, unspecified (principal); F64.0 Transsexualism; Z79.899 Other long term (current) drug therapy

== ENCOUNTER → 2022-04-21 | Outpatient (REF) | payer MEDICARE, OTHER ==
[2022-04-21 15:16] LABS: C REACTIVE PROTEIN QUANTITATIV < 0.30 MG/DL (0.00-0.30); RHEUMATOID FACTOR QUANT < 10.0 IU/ML (<15.0)
[2022-04-25 23:08] LABS: CYCLIC CITRULLINATED PEPTIDE 3 units (0-19)
== END ==
LOC: M LAB REF 12:56
PROVIDERS: ATTEND Pediatrics
DX: M12.9 Arthropathy, unspecified (principal)

== ENCOUNTER → 2022-06-07 | Outpatient (CLI) | payer MEDICARE, OTHER ==
[~2022-06-07] MED LIST changes: +E-Z-GAS II EFFERVESCENT PACKET (SODIUM BICARB./CITRIC ACID/SIMETHICONE) As Ordered ONE; +E-Z-HD 98% w/w 340GM SUSP BTL As Ordered ONE; +E-Z-PAQUE 96% w/w SUSP 176GM BTL As Ordered ONE
== END ==
LOC: M RAD 08:46 → EDSEX 09:00
PROVIDERS: ATTEND Internal Medicine Gastroenterology
DX: R10.32 Left lower quadrant pain (principal); R10.31 Right lower quadrant pain; R13.10 Dysphagia, unspecified

== ENCOUNTER → 2022-08-23 | Outpatient (CLI) | payer MEDICARE, OTHER ==
[~2022-08-23] MED LIST changes: -E-Z-GAS II EFFERVESCENT PACKET (SODIUM BICARB./CITRIC ACID/SIMETHICONE) As Ordered ONE; -E-Z-HD 98% w/w 340GM SUSP BTL As Ordered ONE; -E-Z-PAQUE 96% w/w SUSP 176GM BTL As Ordered ONE
== END ==
LOC: M RAD 10:27
PROVIDERS: ATTEND Neurological Surgery
DX: I67.1 Cerebral aneurysm, nonruptured (principal)

== ENCOUNTER → 2022-08-31 | Outpatient (REF) | payer MEDICARE, OTHER | LOC: M LAB REF 12:41 | PROVIDERS: ATTEND Internal Medicine Gastroenterology | DX: R19.7 Diarrhea, unspecified (principal); A04.71 Enterocolitis due to Clostridium difficile, recurrent ==

== ENCOUNTER → 2022-09-08 | Outpatient (REF) | payer MEDICARE, OTHER ==
[2022-09-08 18:01] LABS: BASO # 0.1 10^3/uL (0.0-0.2); BASO % 1.4 % (0.0-1.0); EOS # 0.3 10^3/uL (0.0-0.5); HEMATOCRIT 44.3 % (42.0-52.0); HEMOGLOBIN 14.8 g/dl (13.5-17.5); LYMPH # 1.9 10^3/uL (1.5-5.0); LYMPH % 29.2 % (24.0-44.0); MEAN CORPUSCULAR HGB CONC 33.4 g/dl (32.0-36.5); MEAN CORPUSCULAR VOLUME 92.9 fl (80.0-96.0); MONO # 0.7 10^3/uL (0.0-0.8); MONO % 10.3 % (2.0-8.0); NEUTROPHILS # 3.6 10^3/uL (1.5-8.5); NEUTROPHILS % 53.9 % (36.0-66.0); PLATELET COUNT, AUTOMATED 265 10^3/uL (150-450); RED BLOOD COUNT 4.77 10^6/uL (4.30-6.10); WHITE BLOOD COUNT 6.6 10^3/uL (4.0-10.0)
[2022-09-08 18:28] LABS: CHOLESTEROL RISK RATIO 3.69 (<5); HDL CHOLESTEROL 62.2 MG/DL (>40); LDL CHOLESTEROL 156.6 MG/DL (<100); NON-HDL-C 167.8 MG/DL
== END ==
LOC: M LAB REF 17:06
PROVIDERS: ATTEND Pediatrics
DX: F64.0 Transsexualism (principal)

== ENCOUNTER → 2022-09-20 | Outpatient (REF) | payer OTHER ==
[2022-09-20 17:00] LABS: BASO # 0.1 10^3/uL (0.0-0.2); BASO % 1.4 % (0.0-1.0); EOS # 0.6 10^3/uL (0.0-0.5); EOS % 8.1 % (0.0-3.0); HEMATOCRIT 45.4 % (42.0-52.0); HEMOGLOBIN 14.4 g/dl (13.5-17.5); LYMPH % 28.9 % (24.0-44.0); MEAN CORPUSCULAR HEMOGLOBIN 30.8 pg (27.0-33.0); MEAN CORPUSCULAR HGB CONC 31.7 g/dl (32.0-36.5); MONO # 0.7 10^3/uL (0.0-0.8); NEUTROPHILS # 3.6 10^3/uL (1.5-8.5); NEUTROPHILS % 51.2 % (36.0-66.0); PLATELET COUNT, AUTOMATED 255 10^3/uL (150-450); RED BLOOD COUNT 4.68 10^6/uL (4.30-6.10); WHITE BLOOD COUNT 6.9 10^3/uL (4.0-10.0)
[2022-09-20 17:38] LABS: BLOOD UREA NITROGEN 20 MG/DL (9-23); CALCIUM LEVEL 9.5 MG/DL (8.5-10.1); CARBON DIOXIDE LEVEL 30 MMOL/L (20-31); CHLORIDE LEVEL 104 MMOL/L (98-107); CREATININE FOR GFR 0.91 MG/DL (0.70-1.30); GLOMERULAR FILTRATION RATE > 60.0 (>60); GLUCOSE, FASTING 72 MG/DL (60-100); SODIUM LEVEL 139 MMOL/L (136-145)
== END ==
LOC: M LAB REF 16:20
PROVIDERS: ATTEND Pediatrics
DX: Z01.818 Encounter for other preprocedural examination (principal)

== ENCOUNTER → 2022-09-21 | Outpatient (CLI) | payer OTHER | LOC: M WUC 14:19 | PROVIDERS: ATTEND Pediatrics | DX: J45.40 Moderate persistent asthma, uncomplicated (principal) ==

== ENCOUNTER → 2022-10-02 | Outpatient (CLI) | payer MEDICARE, OTHER ==
[~2022-10-02] MED LIST changes: +ALBU8.5H INH; +APPLCAP PO; +ATIV1TAB10 PO; +B-12100010 PO; +CELE1CAP7 PO; +CHEL50TA2 PO; +CITA20TA6 PO; +CRAN400C PO; +FERR325T81 PO; +KP F1200 PO; +MAGN400C2 PO; +OMEP40CA5 PO; -ONDA-83; +ONDA-83 PO; +SUPE600T4 PO; +SYMB16INH INH; +TEST200I14 IM; +VITA1CAP25 PO; +[UNRECOGNIZED DRUG - CODE] TOP
== END ==
LOC: M PLAIMG 09-19 08:25
PROVIDERS: ATTEND Physician Assistant
DX: M50.222 Other cervical disc displacement at C5-C6 level (principal)

== ENCOUNTER 2022-10-12 10:17 | Observation (INO) | payer MEDICARE, OTHER ==
[~2022-10-12] VITALS: Ht 157.5 cm; Wt 73.0 kg
[~2022-10-12 10:17] MED LIST changes: +LIDOCAINE 2% 100MG/5ML SDV (FOR ANES.) As Ordered ONE; +MIDAZOLAM INJ 2MG/2ML VIAL As Ordered ONE; +ROCURONIUM BROMIDE 50MG/5ML VIAL As Ordered ONE; +fentaNYL 250 MCG/5 ML INJECTION As Ordered ONE; +propofoL 200 MG/20 ML VIAL As Ordered ONE
[2022-10-12] MEDS ORDERED: LR 1,000 ML IV SCH (10:25)
[2022-10-12] MEDS ORDERED: HEPARIN SOD (PORCINE) 5000UNITS/ML 1ML VIAL/SYRINGE SQ ONE (11:10)
[2022-10-12] MEDS ORDERED: ceFAZolin SOD 2 GM in IV 1 EA IV ONE ×2 (11:10→17:00)
[2022-10-12] MEDS ORDERED: SCOPOLAMINE 1MG TRANSDERMAL PATCH TOP ONE (11:15)
[2022-10-12] MEDS ORDERED: GENTAMICIN SULF 80MG/2ML VIAL As Ordered ONE (11:20)
[2022-10-12] MEDS ORDERED: FAMO40TA3 PO (11:43)
[2022-10-12] MEDS ORDERED: LEVOTAB10 PO (11:43)
[2022-10-12] MEDS ORDERED: TRAN1DIS4 TOP (11:46)
[2022-10-12] MEDS ORDERED: HOME MED LIST COMPLETE! XX SCH (11:50)
[2022-10-12] MEDS ORDERED: HYDROmorphone HCL 2MG/ML 1ML VIAL As Ordered ONE (12:58)
[2022-10-12] MEDS ORDERED: EPINEPHrine INJ 1 MG/ML 1ML AMP As Ordered ONE (13:03)
[2022-10-12] MEDS ORDERED: LIDOCAINE 1% MDV 20ML VIAL As Ordered ONE (13:03)
[2022-10-12] MEDS ORDERED: ONDANSETRON 4MG 2ML VIAL As Ordered ONE (13:17)
[2022-10-12] MEDS ORDERED: KETOROLAC 60MG 2ML VIAL As Ordered ONE (13:17)
[2022-10-12] MEDS ORDERED: ROCURONIUM BROMIDE 50MG/5ML VIAL As Ordered ONE (13:17)
[2022-10-12] MEDS ORDERED: ACETAMINOPHEN 1000MG 100ML IV BAG As Ordered ONE (13:17)
[2022-10-12] MEDS ORDERED: METOCLOPRAMIDE INJ 10MG/2ML VIAL As Ordered ONE (13:17)
[2022-10-12] MEDS ORDERED: MORPHINE 2 MG/ML 1ML VIAL IV PRN (15:40)
[2022-10-12] MEDS ORDERED: fentaNYL 100 MCG/2 ML INJECTION IV PRN (15:40)
[2022-10-12] MEDS ORDERED: ONDANSETRON 4MG 2ML VIAL IV PRN (15:40)
[2022-10-12] MEDS ORDERED: oxyCODONE 5MG TAB PO PRN (15:40)
[2022-10-12] MEDS ORDERED: PERCOCET 5MG/325MG TAB PO PRN (15:50)
[2022-10-12] MEDS ORDERED: traMADol 50 MG TAB PO PRN (15:50)
[2022-10-12] MEDS ORDERED: ALBUTEROL 90 MCG/ACT 8GM HFA INHALER INH PRN (15:50)
[2022-10-12] MEDS ORDERED: ONDANSETRON 4MG TAB PO PRN (15:50)
[2022-10-12] MEDS ORDERED: ACETAMINOPHEN TAB 650MG DOSE (2X325MG) PO PRN (15:50)
[2022-10-12] MEDS ORDERED: FAMOTIDINE 20 MG TAB PO PRN (15:50)
[2022-10-12] MEDS ORDERED: diphenhydrAMINE 50MG/ML VIAL IV STA (16:25)
[2022-10-12 16:50] VITALS: BP 123/68; TEMP 97.9; O2SAT 92
[2022-10-12] MEDS ORDERED: diphenhydrAMINE 50MG/ML VIAL IV PRN (17:05)
[2022-10-12] MEDS: LORazepam 0.5 MG TAB PO SCH ×2 (17:18→20:49)
[2022-10-12] MEDS: LR 1,000 ML IV SCH (17:19)
[2022-10-12 17:20] VITALS: BP 115/68; TEMP 98.8; O2SAT 92
[2022-10-12 17:50] VITALS: BP 111/66; TEMP 98.6; O2SAT 92
[2022-10-12 18:50] VITALS: BP 94/56; TEMP 97.7; O2SAT 94
[2022-10-12] MEDS ORDERED: NS 500 ML IV ONE (19:05)
[2022-10-12] MEDS ORDERED: SYMBICORT 160/4.5MCG INHALER 6GM INH SCH (20:00)
[2022-10-12] MEDS: ONDANSETRON 4MG 2ML VIAL IV PRN (21:04)
[2022-10-12 23:12] VITALS: BP 115/73; TEMP 97.3; O2SAT 92
[2022-10-13 00:12] VITALS: BP 139/82; TEMP 97.7; O2SAT 92
[2022-10-13 02:15] VITALS: BP 135/90; TEMP 97.7; O2SAT 93
[2022-10-13] MEDS: LR 1,000 ML IV SCH (05:10)
[2022-10-13] MEDS: ONDANSETRON 4MG 2ML VIAL IV PRN (05:56)
[2022-10-13 06:37] VITALS: BP 121/82; TEMP 97.9; O2SAT 95
[2022-10-13] MEDS: LORazepam 0.5 MG TAB PO SCH (08:08)
[2022-10-13] MEDS ORDERED: TRAM50TA2 PO (08:53)
[2022-10-13] MEDS ORDERED: CitaloPRAM (CeleXA) 20 MG TAB PO SCH (09:00)
[2022-10-13] MEDS ORDERED: CYANOCOBALAMIN 500 MCG TAB PO SCH (09:00)
[2022-10-13] MEDS ORDERED: CelecoXIB (CeleBREX) 100 MG CAP PO SCH (09:00)
[2022-10-13] MEDS ORDERED: FERROUS SULFATE 325MG TAB PO SCH (09:00)
== END 2022-10-13 11:00 | disposition home or self-care (01) ==
LOC: M SDC 10:17 → M MS5PR 10:18 → M MSPAV 15:46 → UNDOADMOB 15:46 → M MSPAV 16:58 → M MS5PR 16:58 → M MSPAV 17:15 → UNDODISOB 10-13 11:00
PROVIDERS: ADMIT Plastic Surgery Surgery of the Hand; ATTEND Plastic Surgery Surgery of the Hand
DX: F64.9 Gender identity disorder, unspecified (principal); N62 Hypertrophy of breast; K21.9 Gastro-esophageal reflux disease without esophagitis; F17.210 Nicotine dependence, cigarettes, uncomplicated
CPT/HCPCS: 19303; 19350; 87635; 88305; 94640; 96361; 96365; 96375; 96376; C9290; G0378; J0131; J0171; J0690; J1100; J1170; J1200; J1580; J1885; J2250; J2405; J2765; J3010

== ENCOUNTER → 2022-12-13 | Outpatient (CLI) | payer OTHER, MEDICARE ==
[~2022-12-13] MED LIST changes: +FAMO40TA3 PO; +LEVOTAB10 PO; -LIDOCAINE 2% 100MG/5ML SDV (FOR ANES.) As Ordered ONE; -MIDAZOLAM INJ 2MG/2ML VIAL As Ordered ONE; -ROCURONIUM BROMIDE 50MG/5ML VIAL As Ordered ONE; +TRAM50TA2 PO; +TRAN1DIS4 TOP; -fentaNYL 250 MCG/5 ML INJECTION As Ordered ONE; -propofoL 200 MG/20 ML VIAL As Ordered ONE
== END ==
LOC: M RAD 13:14
PROVIDERS: ATTEND Urology
DX: Z87.442 Personal history of urinary calculi (principal); R10.11 Right upper quadrant pain; Z93.3 Colostomy status

== ENCOUNTER → 2022-12-14 | Outpatient (REF) | payer OTHER, MEDICARE | LOC: M LAB REF 11:15 | PROVIDERS: ATTEND Internal Medicine Gastroenterology | DX: R19.7 Diarrhea, unspecified (principal); A04.72 Enterocolitis due to Clostridium difficile, not specified as recurrent ==

== ENCOUNTER → 2022-12-15 | Outpatient (REF) | payer OTHER, MEDICARE ==
[2022-12-15 12:57] LABS: BASO # 0.1 10^3/uL (0.0-0.2); BASO % 0.9 % (0.0-1.0); EOS # 0.4 10^3/uL (0.0-0.5); EOS % 6.5 % (0.0-3.0); HEMATOCRIT 43.7 % (42.0-52.0); HEMOGLOBIN 14.5 g/dl (13.5-17.5); LYMPH # 1.8 10^3/uL (1.5-5.0); LYMPH % 29.1 % (24.0-44.0); MEAN CORPUSCULAR HEMOGLOBIN 31.7 pg (27.0-33.0); MEAN CORPUSCULAR HGB CONC 33.2 g/dl (32.0-36.5); MEAN CORPUSCULAR VOLUME 95.6 fl (80.0-96.0); MONO # 0.5 10^3/uL (0.0-0.8); MONO % 7.1 % (2.0-8.0); NEUTROPHILS # 3.5 10^3/uL (1.5-8.5); NEUTROPHILS % 55.9 % (36.0-66.0); PLATELET COUNT, AUTOMATED 265 10^3/uL (150-450); RED BLOOD COUNT 4.57 10^6/uL (4.30-6.10); WHITE BLOOD COUNT 6.3 10^3/uL (4.0-10.0)
[2022-12-15 13:19] LABS: PERCENT SATURATION 18.1 % (19.7-50.0)
[2022-12-15 13:20] LABS: CHOLESTEROL RISK RATIO 2.93 (<5); HDL CHOLESTEROL 75.4 MG/DL (>40); NON-HDL-C 145.6 MG/DL
== END ==
LOC: M LAB REF 12:03
PROVIDERS: ATTEND Pediatrics
DX: F64.0 Transsexualism (principal); R79.0 Abnormal level of blood mineral

== ENCOUNTER → 2022-12-28 | Outpatient (CLI) | payer OTHER, MEDICARE | LOC: M RAD 07:59 | PROVIDERS: ATTEND Physician Assistant | DX: M54.17 Radiculopathy, lumbosacral region (principal) ==

== ENCOUNTER → 2023-01-01 | Outpatient (CLI) | payer MEDICARE, OTHER ==
[~2023-01-01] MED LIST changes: +ISOVUE-370 76% 100ML VIAL As Ordered ONE
== END ==
LOC: M RAD 09:40
PROVIDERS: ATTEND Urology
DX: R31.0 Gross hematuria (principal)
CPT/HCPCS: 74178; Q9967

== ENCOUNTER → 2023-05-29 | Outpatient (REF) | payer MEDICARE, OTHER ==
[~2023-05-29] MED LIST changes: -CELE1CAP7 PO; +CELE1CAP99 PO; -ISOVUE-370 76% 100ML VIAL As Ordered ONE
[2023-05-29 14:29] LABS: BASO # 0.1 10^3/uL (0.0-0.2); BASO % 1.3 % (0.0-1.0); EOS # 0.5 10^3/uL (0.0-0.5); EOS % 7.3 % (0.0-3.0); HEMATOCRIT 44.6 % (42.0-52.0); HEMOGLOBIN 14.6 g/dl (13.5-17.5); LYMPH # 1.7 10^3/uL (1.5-5.0); LYMPH % 26.2 % (24.0-44.0); MEAN CORPUSCULAR HEMOGLOBIN 30.6 pg (27.0-33.0); MEAN CORPUSCULAR HGB CONC 32.7 g/dl (32.0-36.5); MEAN CORPUSCULAR VOLUME 93.5 fl (80.0-96.0); MONO # 0.6 10^3/uL (0.0-0.8); MONO % 9.7 % (2.0-8.0); NEUTROPHILS # 3.5 10^3/uL (1.5-8.5); NEUTROPHILS % 55.2 % (36.0-66.0); PLATELET COUNT, AUTOMATED 330 10^3/uL (150-450); RED BLOOD COUNT 4.77 10^6/uL (4.30-6.10); WHITE BLOOD COUNT 6.3 10^3/uL (4.0-10.0)
[2023-05-29 14:40] LABS: CHOLESTEROL RISK RATIO 4.42 (<5); HDL CHOLESTEROL 53.5 MG/DL (>40); LDL CHOLESTEROL 159.7 MG/DL (<100); NON-HDL-C 183.5 MG/DL
== END ==
LOC: M LAB REF 13:47
PROVIDERS: ATTEND Pediatrics
DX: F64.0 Transsexualism (principal); Z79.899 Other long term (current) drug therapy

== ENCOUNTER → 2023-08-14 | Outpatient (CLI) | payer MEDICARE, OTHER ==
[2023-08-14 10:14] LABS: APPEARANCE, URINE CLOUDY (CLEAR); BACTERIA, URINE AUTO 1+ (NEGATIVE); BILIRUBIN, URINE AUTO NEGATIVE (NEGATIVE); BLOOD, URINE BLOOD NEGATIVE (NEGATIVE); COLOR, URINE YELLOW (YELLOW); GLUCOSE, URINE (UA) AUTO NEGATIVE (NEGATIVE); KETONE, URINE AUTO NEGATIVE (NEGATIVE); LEUKOCYTE ESTERASE, URINE AUTO TRACE (NEGATIVE); MUCUS, URINE SMALL (NEGATIVE); NITRITE, URINE AUTO POSITIVE (NEGATIVE); PROTEIN, URINE AUTO NEGATIVE (NEGATIVE); RBC, URINE AUTO 1 /HPF (0-3); SPECIFIC GRAVITY URINE AUTO 1.012 (1.002-1.035); SQUAMOUS EPITHELIAL CELL UR AU 0 /HPF (0-6); UROBILINOGEN, URINE AUTO 0.2 mg/dL (0.0-2.0); WBC, URINE AUTO 3 /HPF (0-3)
== END ==
LOC: M LAB 09:25
PROVIDERS: ATTEND Student in an Organized Health Care Education/Training Program
DX: R61 Generalized hyperhidrosis (principal)

== ENCOUNTER → 2023-08-14 | Outpatient (CLI) | payer MEDICARE, OTHER ==
[2023-08-14 10:13] LABS: BASO # 0.1 10^3/uL (0.0-0.2); BASO % 1.1 % (0.0-1.0); EOS # 0.3 10^3/uL (0.0-0.5); EOS % 5.9 % (0.0-3.0); HEMATOCRIT 43.1 % (42.0-52.0); LYMPH # 1.6 10^3/uL (1.5-5.0); LYMPH % 30.1 % (24.0-44.0); MEAN CORPUSCULAR HEMOGLOBIN 30.4 pg (27.0-33.0); MEAN CORPUSCULAR HGB CONC 32.5 g/dl (32.0-36.5); MEAN CORPUSCULAR VOLUME 93.5 fl (80.0-96.0); MONO # 0.5 10^3/uL (0.0-0.8); MONO % 8.5 % (2.0-8.0); NEUTROPHILS # 2.9 10^3/uL (1.5-8.5); PLATELET COUNT, AUTOMATED 300 10^3/uL (150-450); RED BLOOD COUNT 4.61 10^6/uL (4.30-6.10); WHITE BLOOD COUNT 5.3 10^3/uL (4.0-10.0)
[2023-08-14 10:22] LABS: ERYTHROCYTE SEDIMENTATION RATE 13 mm/hr (0-15)
[2023-08-14 10:44] LABS: URIC ACID 6.8 MG/DL (3.7-9.2)
[2023-08-14 10:45] LABS: C REACTIVE PROTEIN QUANTITATIV < 0.40 MG/DL (<1.0)
[2023-08-14 10:47] LABS: ALBUMIN 3.9 G/DL (3.2-5.2); ALKALINE PHOSPHATASE 84 U/L (46-116); ALT/SGPT 23 U/L (7.0-40); AST/SGOT 21 U/L (<34); BILIRUBIN,TOTAL 0.3 MG/DL (0.3-1.2); BLOOD UREA NITROGEN 8 MG/DL (9-23); CARBON DIOXIDE LEVEL 28 MMOL/L (20-31); CHLORIDE LEVEL 104 MMOL/L (98-107); CREATININE FOR GFR 1.04 MG/DL (0.70-1.30); GLOMERULAR FILTRATION RATE > 60.0 (>60); GLUCOSE, FASTING 110 MG/DL (60-100); POTASSIUM SERUM 3.9 MMOL/L (3.5-5.1); SODIUM LEVEL 140 MMOL/L (136-145); TOTAL PROTEIN 6.6 G/DL (5.7-8.2)
[2023-08-14 10:48] LABS: RHEUMATOID FACTOR QUANT < 3.5 IU/ML (<14)
[2023-08-16 15:16] LABS: ANA (HEP2) Positive (.); ANTI DS-DNA AB Negative (Negative); RNP ANTIBODY 0.2 AI (0.0-0.9); SMITHS ANTIBODY < 0.2 AI (0.0-0.9)
== END ==
LOC: M LAB 09:21
PROVIDERS: ATTEND Nurse Practitioner Family
DX: M25.50 Pain in unspecified joint (principal); R61 Generalized hyperhidrosis

== ENCOUNTER → 2023-09-12 | Outpatient (REF) | payer MEDICARE, OTHER ==
[2023-09-12 14:03] LABS: BASO # 0.1 10^3/uL (0.0-0.2); BASO % 0.9 % (0.0-1.0); EOS # 0.5 10^3/uL (0.0-0.5); EOS % 7.9 % (0.0-3.0); HEMATOCRIT 48.1 % (42.0-52.0); HEMOGLOBIN 15.8 g/dl (13.5-17.5); LYMPH # 1.4 10^3/uL (1.5-5.0); LYMPH % 22.3 % (24.0-44.0); MEAN CORPUSCULAR HEMOGLOBIN 30.2 pg (27.0-33.0); MEAN CORPUSCULAR HGB CONC 32.8 g/dl (32.0-36.5); MEAN CORPUSCULAR VOLUME 91.8 fl (80.0-96.0); MONO # 0.5 10^3/uL (0.0-0.8); MONO % 8.1 % (2.0-8.0); NEUTROPHILS # 3.8 10^3/uL (1.5-8.5); NEUTROPHILS % 60.5 % (36.0-66.0); PLATELET COUNT, AUTOMATED 309 10^3/uL (150-450); RED BLOOD COUNT 5.24 10^6/uL (4.30-6.10); WHITE BLOOD COUNT 6.3 10^3/uL (4.0-10.0)
[2023-09-12 14:35] LABS: THYROID STIMULATING HORMONE 1.197 uIU/ML (0.55-4.78)
[2023-09-12 14:36] LABS: TESTOSTERONE 751 NG/DL (241-827)
[2023-09-12 14:38] LABS: HEMOGLOBIN A1c 5.6 % (4.0-6.0)
[2023-09-12 14:40] LABS: ALBUMIN 4.4 G/DL (3.2-5.2); ALKALINE PHOSPHATASE 88 U/L (46-116); ALT/SGPT 28 U/L (7.0-40); AST/SGOT 22 U/L (<34); BILIRUBIN,TOTAL 0.2 MG/DL (0.3-1.2); BLOOD UREA NITROGEN 12 MG/DL (9-23); CALCIUM LEVEL 9.5 MG/DL (8.5-10.1); CARBON DIOXIDE LEVEL 27 MMOL/L (20-31); CHLORIDE LEVEL 105 MMOL/L (98-107); CHOLESTEROL LEVEL 224 MG/DL (<200); CHOLESTEROL RISK RATIO 4.48 (<5); CREATININE FOR GFR 1.04 MG/DL (0.70-1.30); GLOMERULAR FILTRATION RATE > 60.0 (>60); GLUCOSE, FASTING 110 MG/DL (60-100); POTASSIUM SERUM 4.8 MMOL/L (3.5-5.1); SODIUM LEVEL 138 MMOL/L (136-145); TOTAL PROTEIN 7.4 G/DL (5.7-8.2); TRIGLYCERIDES LEVEL 90 MG/DL (<150)
== END ==
LOC: M LAB REF 12:18
PROVIDERS: ATTEND Pediatrics
DX: E78.5 Hyperlipidemia, unspecified (principal); E66.9 Obesity, unspecified; F64.0 Transsexualism; Z79.899 Other long term (current) drug therapy

== ENCOUNTER → 2024-01-18 | Outpatient (REF) | payer MEDICARE, MEDICAID ==
[~2024-01-18] MED LIST changes: -CRAN400C PO; +CRANBERRY400 MG PO
[2024-01-18 14:02] LABS: BASO # 0.1 10^3/uL (0.0-0.2); EOS # 0.2 10^3/uL (0.0-0.5); EOS % 2.6 % (0.0-3.0); HEMATOCRIT 48.2 % (42.0-52.0); LYMPH # 1.4 10^3/uL (1.5-5.0); LYMPH % 23.5 % (24.0-44.0); MEAN CORPUSCULAR HEMOGLOBIN 30.5 pg (27.0-33.0); MEAN CORPUSCULAR HGB CONC 33.2 g/dl (32.0-36.5); MONO # 0.6 10^3/uL (0.0-0.8); MONO % 9.8 % (2.0-8.0); NEUTROPHILS # 3.7 10^3/uL (1.5-8.5); NEUTROPHILS % 62.8 % (36.0-66.0); PLATELET COUNT, AUTOMATED 331 10^3/uL (150-450); RED BLOOD COUNT 5.24 10^6/uL (4.30-6.10); WHITE BLOOD COUNT 5.8 10^3/uL (4.0-10.0)
[2024-01-18 14:07] LABS: ALBUMIN 4.4 G/DL (3.2-5.2); ALKALINE PHOSPHATASE 82 U/L (46-116); ALT/SGPT 40 U/L (7.0-40); AST/SGOT 41 U/L (<34); BILIRUBIN,TOTAL 0.6 MG/DL (0.3-1.2); BLOOD UREA NITROGEN 12 MG/DL (9-23); CALCIUM LEVEL 9.7 MG/DL (8.5-10.1); CARBON DIOXIDE LEVEL 27 MMOL/L (20-31); CHLORIDE LEVEL 100 MMOL/L (98-107); CHOLESTEROL LEVEL 271 MG/DL (<200); CHOLESTEROL RISK RATIO 5.77 (<5); CREATININE FOR GFR 1.23 MG/DL (0.70-1.30); GLOMERULAR FILTRATION RATE > 60.0 (>60); GLUCOSE, FASTING 121 MG/DL (60-100); HDL CHOLESTEROL 46.9 MG/DL (>40); LDL CHOLESTEROL 202.7 MG/DL (<100); NON-HDL-C 224.1 MG/DL; POTASSIUM SERUM 4.1 MMOL/L (3.5-5.1); SODIUM LEVEL 135 MMOL/L (136-145); TOTAL PROTEIN 7.7 G/DL (5.7-8.2); TRIGLYCERIDES LEVEL 107 MG/DL (<150)
[2024-01-18 14:09] LABS: TESTOSTERONE 952 NG/DL (241-827)
[2024-01-18 14:33] LABS: HEMOGLOBIN A1c 5.4 % (4.0-6.0)
== END ==
LOC: M LAB REF 12:43
PROVIDERS: ATTEND Pediatrics
DX: R73.03 Prediabetes (principal); F64.0 Transsexualism; Z76.89 Persons encountering health services in other specified circumstances; Z79.899 Other long term (current) drug therapy

== ENCOUNTER → 2024-04-23 | Outpatient (CLI) | payer MEDICARE, MEDICAID | LOC: M RAD 15:21 | PROVIDERS: ATTEND Specialist | DX: J45.909 Unspecified asthma, uncomplicated (principal) ==

== ENCOUNTER → 2024-05-13 | Outpatient (REF) | payer MEDICARE, MEDICAID ==
[2024-05-14 14:36] LABS: BASO # 0.1 10^3/uL (0.0-0.2); BASO % 1.3 % (0.0-1.0); EOS # 0.2 10^3/uL (0.0-0.5); EOS % 3.2 % (0.0-3.0); HEMATOCRIT 48.4 % (42.0-52.0); HEMOGLOBIN 15.7 g/dl (13.5-17.5); LYMPH # 2.2 10^3/uL (1.5-5.0); LYMPH % 32.9 % (24.0-44.0); MEAN CORPUSCULAR HEMOGLOBIN 30.8 pg (27.0-33.0); MEAN CORPUSCULAR HGB CONC 32.4 g/dl (32.0-36.5); MEAN CORPUSCULAR VOLUME 94.9 fl (80.0-96.0); MONO # 0.6 10^3/uL (0.0-0.8); NEUTROPHILS # 3.6 10^3/uL (1.5-8.5); NEUTROPHILS % 53.2 % (36.0-66.0); PLATELET COUNT, AUTOMATED 352 10^3/uL (150-450); WHITE BLOOD COUNT 6.8 10^3/uL (4.0-10.0)
[2024-05-14 14:43] LABS: CHOLESTEROL RISK RATIO 4.44 (<5); HDL CHOLESTEROL 62.3 MG/DL (>40); LDL CHOLESTEROL 191.5 MG/DL (<100); NON-HDL-C 214.7 MG/DL; PERCENT SATURATION 20.2 % (19.7-50.0)
[2024-05-14 14:45] LABS: FERRITIN 31.7 NG/ML (10.5-307.3); THYROID STIMULATING HORMONE 1.528 uIU/ML (0.55-4.78)
[2024-05-14 15:16] LABS: HEMOGLOBIN A1c 5.3 % (4.0-6.0)
== END ==
LOC: M LAB REF 13:30
PROVIDERS: ATTEND Pediatrics
DX: F64.0 Transsexualism (principal); Z76.89 Persons encountering health services in other specified circumstances; R73.03 Prediabetes; E61.1 Iron deficiency; E78.00 Pure hypercholesterolemia, unspecified

== ENCOUNTER → 2024-11-07 | Outpatient (REF) | payer MEDICARE, MEDICAID ==
[2024-11-07 18:02] LABS: BASO # 0.1 10^3/uL (0.0-0.2); BASO % 0.9 % (0.0-1.0); EOS # 0.3 10^3/uL (0.0-0.5); EOS % 3.4 % (0.0-3.0); HEMOGLOBIN 15.3 g/dl (13.5-17.5); LYMPH # 1.9 10^3/uL (1.5-5.0); LYMPH % 22.7 % (24.0-44.0); MEAN CORPUSCULAR HEMOGLOBIN 30.7 pg (27.0-33.0); MEAN CORPUSCULAR HGB CONC 33.3 g/dl (32.0-36.5); MEAN CORPUSCULAR VOLUME 92.2 fl (80.0-96.0); MONO # 0.7 10^3/uL (0.0-0.8); MONO % 8.7 % (2.0-8.0); NEUTROPHILS # 5.3 10^3/uL (1.5-8.5); NEUTROPHILS % 63.9 % (36.0-66.0); PLATELET COUNT, AUTOMATED 348 10^3/uL (150-450); RED BLOOD COUNT 4.99 10^6/uL (4.30-6.10); WHITE BLOOD COUNT 8.2 10^3/uL (4.0-10.0)
[2024-11-07 18:29] LABS: HEMOGLOBIN A1c 5.7 % (4.0-6.0)
[2024-11-07 18:38] LABS: ALBUMIN 4.2 G/DL (3.2-5.2); ALKALINE PHOSPHATASE 79 U/L (40-129); ALT/SGPT 36 U/L (7.0-40); AST/SGOT 24 U/L (<34); BILIRUBIN,TOTAL 0.3 MG/DL (0.3-1.2); BLOOD UREA NITROGEN 8 MG/DL (9-23); CALCIUM LEVEL 9.3 MG/DL (8.5-10.1); CARBON DIOXIDE LEVEL 29 MMOL/L (20-31); CHLORIDE LEVEL 102 MMOL/L (98-107); CHOLESTEROL LEVEL 237 MG/DL (<200); CHOLESTEROL RISK RATIO 5.51 (<5); CREATININE FOR GFR 0.96 MG/DL (0.70-1.30); GLOMERULAR FILTRATION RATE > 90.0 (>60); GLUCOSE, FASTING 116 MG/DL (60-100); IRON (FE) 30 UG/DL (65-175); PERCENT SATURATION 9.1 % (19.7-50.0); POTASSIUM SERUM 4.1 MMOL/L (3.5-5.1); SODIUM LEVEL 141 MMOL/L (136-145); TOTAL IRON BINDING CAPACITY 329 UG/DL (250-425); TOTAL PROTEIN 7.3 G/DL (5.7-8.2); TRIGLYCERIDES LEVEL 150 MG/DL (<150)
[2024-11-07 18:39] LABS: TESTOSTERONE 307 NG/DL (241-827)
== END ==
LOC: M LAB REF 17:22
PROVIDERS: ATTEND Pediatrics
DX: F64.0 Transsexualism (principal); R73.03 Prediabetes; E61.1 Iron deficiency; Z79.899 Other long term (current) drug therapy

== ENCOUNTER → 2025-03-04 | Outpatient (REF) | payer MEDICARE ==
[~2025-03-04] MED LIST changes: -IBUP-1022 PO; +IBUP600T42 PO
[2025-03-04 15:07] LABS: ALT/SGPT 67 U/L (7.0-40); AST/SGOT 44 U/L (<34); CALCIUM LEVEL 9.6 MG/DL (8.5-10.1); CARBON DIOXIDE LEVEL 28 MMOL/L (20-31); CHLORIDE LEVEL 103 MMOL/L (98-107); CHOLESTEROL LEVEL 148 MG/DL (<200); CHOLESTEROL RISK RATIO 2.41 (<5); CREATININE FOR GFR 1.09 MG/DL (0.70-1.30); GLOMERULAR FILTRATION RATE > 90.0 (>60); IRON (FE) 115 UG/DL (65-175); LDL CHOLESTEROL 60.7 MG/DL (<100); NON-HDL-C 86.7 MG/DL; PERCENT SATURATION 37.5 % (19.7-50.0); POTASSIUM SERUM 4.3 MMOL/L (3.5-5.1); SODIUM LEVEL 143 MMOL/L (136-145); TRIGLYCERIDES LEVEL 130 MG/DL (<150)
[2025-03-04 15:23] LABS: ESTIMATED AVERAGE GLUCOSE 120.0 MG/DL (60-110)
== END ==
LOC: M LAB REF 14:30
PROVIDERS: ATTEND Pediatrics
DX: E78.00 Pure hypercholesterolemia, unspecified (principal); R73.03 Prediabetes; E61.1 Iron deficiency

== ENCOUNTER → 2025-05-29 | Outpatient (CLI) | payer MEDICARE, MEDICAID | LOC: M RAD 07:39 | PROVIDERS: ATTEND Specialist | DX: R13.10 Dysphagia, unspecified (principal); R11.10 Vomiting, unspecified; K30 Functional dyspepsia | CPT/HCPCS: 78262; A9541 ==

== ENCOUNTER → 2025-06-08 | Outpatient (CLI) | payer MEDICARE, MEDICAID ==
[~2025-06-08] MED LIST changes: +E-Z-GAS II EFFERVESCENT PACKET (SODIUM BICARB./CITRIC ACID/SIMETHICONE) As Ordered ONE; +E-Z-HD 98% w/w 340 GM SUSP BTL As Ordered ONE; +E-Z-PAQUE 96% w/w SUSP 176 GM BTL As Ordered ONE
== END ==
LOC: M RAD 11:17
PROVIDERS: ATTEND Specialist
DX: K21.9 Gastro-esophageal reflux disease without esophagitis (principal); R13.10 Dysphagia, unspecified

== ENCOUNTER → 2025-06-15 | Outpatient (CLI) | payer MEDICARE, MEDICAID ==
[~2025-06-15] MED LIST changes: -E-Z-GAS II EFFERVESCENT PACKET (SODIUM BICARB./CITRIC ACID/SIMETHICONE) As Ordered ONE; -E-Z-HD 98% w/w 340 GM SUSP BTL As Ordered ONE; -E-Z-PAQUE 96% w/w SUSP 176 GM BTL As Ordered ONE
== END ==
LOC: M RAD 08:36
PROVIDERS: ATTEND Internal Medicine Gastroenterology
DX: K30 Functional dyspepsia (principal); K44.9 Diaphragmatic hernia without obstruction or gangrene; R13.10 Dysphagia, unspecified; R11.0 Nausea; A04.72 Enterocolitis due to Clostridium difficile, not specified as recurrent; E61.1 Iron deficiency; R73.03 Prediabetes; F64.0 Transsexualism; E78.00 Pure hypercholesterolemia, unspecified
CPT/HCPCS: 36415; 78264; 80061; 82728; 83036; 83550; 84403; 85025; A9541

== ENCOUNTER → 2025-06-15 | Outpatient (CLI) | payer MEDICARE, MEDICAID ==
[2025-06-15 11:29] LABS: BASO # 0.1 10^3/uL (0.0-0.2); BASO % 1.2 % (0.0-1.0); EOS # 0.4 10^3/uL (0.0-0.5); EOS % 6.4 % (0.0-3.0); LYMPH # 1.9 10^3/uL (1.5-5.0); LYMPH % 28.3 % (24.0-44.0); MONO # 0.6 10^3/uL (0.0-0.8); MONO % 9.3 % (2.0-8.0); NEUTROPHILS # 3.6 10^3/uL (1.5-8.5); NEUTROPHILS % 54.5 % (36.0-66.0); PLATELET COUNT, AUTOMATED 309 10^3/uL (150-450)
[2025-06-15 11:39] LABS: ESTIMATED AVERAGE GLUCOSE 111.0 MG/DL (60-110)
[2025-06-15 11:58] LABS: CHOLESTEROL LEVEL 154.0 MG/DL (<200); CHOLESTEROL RISK RATIO 3.06 (<5); IRON (FE) 64.0 UG/DL (65-175); LDL CHOLESTEROL 89.6 MG/DL (<100); NON-HDL-C 103.8 MG/DL; PERCENT SATURATION 22.0 % (19.7-50.0); TRIGLYCERIDES LEVEL 71.0 MG/DL (<150)
[2025-06-15 12:03] LABS: TESTOSTERONE 175.0 NG/DL (241-827)
== END ==
LOC: M LAB 10:59
PROVIDERS: ATTEND Pediatrics
DX: E61.1 Iron deficiency (principal); R73.03 Prediabetes; F64.0 Transsexualism; E78.00 Pure hypercholesterolemia, unspecified